=== PATIENT | female | born 1975 | race Caucasian/White ===

== ENCOUNTER → 2017-09-09 | Outpatient (CLI) | payer BC ==
[~2017-09-09] MED LIST: CELEXA 20MG20 MG/TAB PO; CELEXA10 MG PO; LORTAB 5/500 501 TAB PO; MOTRIN 800800 MG/TAB PO; NASONEX SPRAY17 GM NS; PERCOCET 325 MG1 TA2 PO; PRENATAL1 TA1 PO; ROLAIDS220 M1 PO; ZOFRAN 4MG T4 MG/TAB PO
== END ==
LOC: MC.RAD 14:20
DX: Z12.31 Encounter for screening mammogram for malignant neoplasm of breast (principal)

== ENCOUNTER → 2019-10-24 | Outpatient (CLI) | payer BC | LOC: MC.RAD 07:43 | DX: Z12.31 Encounter for screening mammogram for malignant neoplasm of breast (principal) ==